=== PATIENT | male | born 1960 | race Caucasian/White ===

== ENCOUNTER 2025-01-27 10:50 | Emergency (ER) | payer BC, MEDICARE ==
[2025-01-27] MEDS ORDERED: Sodium Chloride 0.9% 10 ML Syringe FLUSH PRN (11:01)
[2025-01-27] MEDS ORDERED: Naloxone 0.4 MG/ML SDV IVPUSH PRN ×2 (11:04→13:20)
[2025-01-27 11:17] LABS: BASOPHILS ABSOLUTE AUTO 0.02 10^3/uL (0.00-0.10); BASOPHILS PERCENT AUTO 0.2 % (0.0-1.0); EOSINOPHILS ABSOLUTE AUTO 0.02 10^3/uL (0.10-0.30); EOSINOPHILS PERCENT AUTO 0.2 % (1.0-3.0); IMMATURE GRAN ABSOLUTE AUTO 0.04 10^3/uL (0.00-0.04); IMMATURE GRAN PERCENT AUTO 0.4 % (0.0-0.4); LYMPHOCYTES ABSOLUTE AUTO 0.61 10^3/uL (1.00-4.00); LYMPHOCYTES PERCENT AUTO 5.5 % (20.0-40.0); MEAN PLATELET VOLUME 10.0 fL (7.4-10.4); MONOCYTES ABSOLUTE AUTO 0.58 10^3/uL (0.10-0.80); MONOCYTES PERCENT AUTO 5.3 % (2.0-8.0); NEUTROPHILS ABSOLUTE AUTO 9.73 10^3/uL (2.50-7.00); NEUTROPHILS PERCENT AUTO 88.4 % (50.0-70.0); PLATELET COUNT,PLT 207 10^3/uL (150-400); RED BLOOD CELL COUNT 3.91 10^6/uL (4.50-6.00); RED CELL DISTRIBUTION WIDTH 14.7 % (11.5-14.5); WHITE BLOOD CELL COUNT,WBC 11.00 10^3/uL (5.00-10.00)
[2025-01-27 11:34] LABS: ALANINE AMINOTRANSFERASE,ALT 59 U/L (14-63); ASPARTATE AMNIOTRANSFERASE,AST 33 U/L (15-37); BILIRUBIN TOTAL 0.6 mg/dL (0.2-1.0); BLOOD UREA NITROGEN,BUN 50 mg/dL (7-18); CARBON DIOXIDE,CO2 22.7 mmol/L (21.0-32.0); CHLORIDE,CL 99 mmol/L (98-107); CREATININE 3.25 mg/dL (0.51-1.17); ESTIMATED GFR 20 mL/min (>=60); GLUCOSE RANDOM 311 mg/dL (70-140); POTASSIUM,K 4.4 mmol/L (3.5-5.1); PROTEIN TOTAL,TP 7.4 g/dL (6.4-8.2); SODIUM,NA 136 mmol/L (136-145)
[2025-01-27 11:50] LABS: APPEARANCE,URINE CLEAR (CLEAR); GLUCOSE,URINE 250 mg/dL (NEGATIVE); OCCULT BLOOD,URINE MODERATE (NEGATIVE)
[2025-01-27 12:07] LABS: EPITHELIAL CELLS,URINE NOT SEEN /LPF
== END 2025-01-27 15:40 ==
LOC: KA.ED 10:50
DX: S72.044A Nondisplaced fracture of base of neck of right femur, initial encounter for closed fracture (principal); S80.211A Abrasion, right knee, initial encounter; S80.212A Abrasion, left knee, initial encounter; E11.8 Type 2 diabetes mellitus with unspecified complications; I12.9 Hypertensive chronic kidney disease with stage 1 through stage 4 chronic kidney disease, or unspecified chronic kidney disease; N18.4 Chronic kidney disease, stage 4 (severe); E66.9 Obesity, unspecified; E11.22 Type 2 diabetes mellitus with diabetic chronic kidney disease; Z68.30 Body mass index [BMI] 30.0-30.9, adult; Z90.49 Acquired absence of other specified parts of digestive tract; Z88.0 Allergy status to penicillin; Z79.4 Long term (current) use of insulin; Z79.899 Other long term (current) drug therapy; W01.198A Fall on same level from slipping, tripping and stumbling with subsequent striking against other object, initial encounter
CPT/HCPCS: 36415; 51702; 71045; 80053; 81001; 84484; 85025; 96361; 96374; 96376; 99285-25; J1171; J7030